=== PATIENT | female | born 1990 ===

== ENCOUNTER 2021-08-23 08:15 | Inpatient (IN) | payer OTHER ==
[~2021-08-23] VITALS: Ht 167.6 cm; Wt 4.1 kg
[2021-08-23] MEDS ORDERED: PRENATAL (10:20)
[2021-08-23] MEDS ORDERED: CHILDREN'S ASPI81 MG (10:20)
[2021-08-26] MEDS ORDERED: PRENATAL + DHA1 EAC1 PO (14:08)
[2021-08-28] MEDS ORDERED: IBUPROFEN IB200 MG PO (12:32)
[2021-08-28] MEDS ORDERED: GAS RELIEF80 MG PO (12:32)
[2021-08-28] MEDS ORDERED: COLACE100 MG PO (12:32)
[2021-08-28] MEDS ORDERED: PERCOCET 5-3251 EACH PO (12:32)
== END 2021-08-28 16:32 | disposition home or self-care (01) | DRG 788 ==
LOC: O/R 08-26 07:30 → SURH 08-26 08:15 → OB/GYN 08-26 15:46 → O/R 08-26 19:29 → OB/GYN 08-26 22:02
PROVIDERS: ADMIT Obstetrics & Gynecology; ATTEND Obstetrics & Gynecology
PROC: 4A1HXFZ Monitoring of Products of Conception, Cardiac Rhythm, External Approach (ICD-10-PCS; 2021-08-26)
PROC: 10D00Z1 Extraction of Products of Conception, Low, Open Approach (ICD-10-PCS; principal; 2021-08-26 08:45)
DX: O34.211 Maternal care for low transverse scar from previous cesarean delivery (principal); O99.284 Endocrine, nutritional and metabolic diseases complicating childbirth; E03.9 Hypothyroidism, unspecified; Z3A.39 39 weeks gestation of pregnancy; Z37.0 Single live birth